=== PATIENT | female | born 1985 | race Caucasian/White ===

== ENCOUNTER 2019-03-05 22:08 | Emergency (ER) | payer OTHER ==
[~2019-03-05] VITALS: Ht 172.7 cm; Wt 133.8 kg
[2019-03-05] MEDS ORDERED: ADDERALL 10 MG10 MG PO (22:18)
[2019-03-05] MEDS ORDERED: PROZAC20 MG PO (22:18)
[2019-03-05] MEDS ORDERED: CLARITIN10 MG PO (22:18)
[2019-03-05] MEDS ORDERED: NUVARING VAGIN1 EACH VG (22:19)
[2019-03-05 23:01] VITALS: BP 160/89
== END 2019-03-05 23:02 | disposition home or self-care (01) ==
LOC: M.ERS 22:08
DX: Z20.2 Contact with and (suspected) exposure to infections with a predominantly sexual mode of transmission (principal); Z87.442 Personal history of urinary calculi; Z90.49 Acquired absence of other specified parts of digestive tract